=== PATIENT | female | born 1995 | race Caucasian/White ===

== ENCOUNTER 2018-10-24 11:21 | Emergency (ER) | payer SELFPAY ==
[~2018-10-24] VITALS: Ht 162.6 cm; Wt 73.7 kg
[2018-10-24 11:59] LABS: BASOPHILS # (AUTO) 0.07 x10^3/uL (0-0.1); BASOPHILS % (AUTO) 1 % (0-1); EOSINOPHILS % (AUTO) 2 % (1-7); LYMPHOCYTES # (AUTO) 1.61 x10^3/uL (1-3.4); LYMPHOCYTES % (AUTO) 25 % (22-44); MD NO; MEAN CORPUSCULAR HEMOGLOBIN 34.7 pg (27.0-34.8); MEAN CORPUSCULAR HGB CONC 33.5 g/dL (32.4-35.8); MEAN CORPUSCULAR VOLUME 103.4 fL (80-100); MEAN PLATELET VOLUME 8.1 fL (7.4-10.4); MONOCYTES # (AUTO) 0.58 x10^3/uL (0.2-0.8); MONOCYTES % (AUTO) 9 % (2-9); NEUTROPHILS # (AUTO) 4.13 x10^3/uL (1.8-6.8); NEUTROPHILS % (AUTO) 64 % (42-75); PLATELET COUNT 239 x10^3/uL (130-400); RED BLOOD COUNT 4.54 x10^6/uL (3.82-5.3); RED CELL DISTRIBUTION WIDTH 13.8 % (9.6-15.2)
[2018-10-24 12:06] LABS: ALANINE AMINOTRANSFERASE 141 U/L (12-78); ALBUMIN 4.1 g/dL (3.4-5.0); ANION GAP 9 mmol/L (5-15); CALCIUM 8.6 mg/dL (8.5-10.1); CHLORIDE 109 mmol/L (98-107); CREATININE 0.78 mg/dL (0.55-1.02)
[2018-10-24 12:11] LABS: ALKALINE PHOSPHATASE 83 U/L (45-117); BILIRUBIN,TOTAL 0.4 mg/dL (0.2-1.0); TOTAL PROTEIN 7.9 g/dL (6.4-8.2)
[2018-10-24] MEDS ORDERED: THIAMINE 100MG TABLET PO ONE (12:30)
[2018-10-24 12:39] LABS: AMPHETAMINE SCREEN, URINE Negative (Negative); BARBITURATE SCREEN, URINE Negative (Negative); BENZODIAZEPINE SCREEN, URINE Negative (Negative); CANNABINOID SCREEN, URINE Negative (Negative); COCAINE SCREEN, URINE Negative (Negative); METHADONE SCREEN, URINE Negative (Negative); OPIATE SCREEN, URINE Negative (Negative)
[2018-10-24] MEDS ORDERED: THIAMINE 100MG TABLET ONE (12:49)
--- NOTE | 2018-10-24 13:04 | NUR ---
NO ACUTE DISTRESS NOTED. NO IV TO DC. REVIEWED DC INSTRUCTIONS WITH PT, UNDERSTANDING VERBALIZED.
[2018-10-24 13:06] VITALS: BP 93/55
== END 2018-10-24 13:08 | disposition home or self-care (01) ==
LOC: ED 12:41
DX: F10.129 Alcohol abuse with intoxication, unspecified (principal)
CPT/HCPCS: 36415; 80053; 80307; 84703; 85025; 99283

== ENCOUNTER 2018-12-02 01:27 | Emergency (ER) | payer MEDICAID ==
[~2018-12-02] VITALS: Ht 162.6 cm; Wt 75.4 kg
--- NOTE | 2018-12-02 01:57 | NUR ---
PT HAS HAD FLU LIKE SYMPTOMS FOR PAST 2 WEEKS (COUGH/ ACHES). ALSO BEEN HAVING DIARRHEA FOR PAST 3 DAYS. STATES "HAVING SHARP PAIN TO BILATERAL LOWER EXTREMITIES AND FEELS BOTH FEET AND ANKLES ARE SWOLLEN.
[2018-12-02 02:12] LABS: BASOPHILS # (AUTO) 0.04 x10^3/uL (0-0.1); BASOPHILS % (AUTO) 1 % (0-1); EOSINOPHILS # (AUTO) 0.26 x10^3/uL (0-0.4); EOSINOPHILS % (AUTO) 3 % (1-7); LYMPHOCYTES # (AUTO) 2.38 x10^3/uL (1-3.4); LYMPHOCYTES % (AUTO) 29 % (22-44); MD NO; MEAN CORPUSCULAR HEMOGLOBIN 33.8 pg (27.0-34.8); MEAN CORPUSCULAR HGB CONC 34.3 g/dL (32.4-35.8); MEAN CORPUSCULAR VOLUME 98.6 fL (80-100); MEAN PLATELET VOLUME 7.8 fL (7.4-10.4); MONOCYTES # (AUTO) 0.62 x10^3/uL (0.2-0.8); MONOCYTES % (AUTO) 8 % (2-9); NEUTROPHILS # (AUTO) 4.81 x10^3/uL (1.8-6.8); NEUTROPHILS % (AUTO) 59 % (42-75); PLATELET COUNT 271 x10^3/uL (130-400); RED BLOOD COUNT 3.98 x10^6/uL (3.82-5.3); RED CELL DISTRIBUTION WIDTH 12.5 % (9.6-15.2)
[2018-12-02 02:23] LABS: ALANINE AMINOTRANSFERASE 27 U/L (12-78); ALBUMIN 3.1 g/dL (3.4-5.0); ANION GAP 8 mmol/L (5-15); CHLORIDE 108 mmol/L (98-107); CREATININE 0.89 mg/dL (0.55-1.02)
[2018-12-02 02:25] LABS: ALKALINE PHOSPHATASE 40 U/L (45-117); BILIRUBIN,TOTAL 0.3 mg/dL (0.2-1.0); TOTAL PROTEIN 5.5 g/dL (6.4-8.2)
--- NOTE | 2018-12-02 03:10 | NUR ---
PT RESTING. UPDATED ON POC. VSS.
[2018-12-02 03:30] VITALS: BP 118/74
== END 2018-12-02 03:32 | disposition home or self-care (01) ==
LOC: ED 02:16
DX: R05 Cough (principal); R09.89 Other specified symptoms and signs involving the circulatory and respiratory systems; R51 Headache; Z87.891 Personal history of nicotine dependence
CPT/HCPCS: 36415; 71046; 80053; 85025; 99284

== ENCOUNTER 2019-10-30 07:21 | Emergency (ER) | payer SELFPAY ==
[~2019-10-30] VITALS: Ht 162.6 cm; Wt 78.7 kg
--- NOTE | 2019-10-30 08:11 | NUR ---
TO ROOM FROM LOBBY. PT BEGAN VOMITTING INTO EMESIS BAG UPON ARRIVAL TO ROOM. FAMILY AT BEDSIDE. PT INSTRUCTED TO CHANGE INTO GOWN. AWAITING ORDERS BY ED MD.
[2019-10-30] MEDS ORDERED: MAALOX/HYOSCYAMINE/LIDOCAINE 45 ML BTL PO ONE (08:30)
[2019-10-30] MEDS ORDERED: FAMOTIDINE 20 MG/2 ML IV ONE (08:30)
[2019-10-30] MEDS ORDERED: SODIUM CHLORIDE FLUSH 10ML SYR IVF ONE (08:30)
[2019-10-30] MEDS ORDERED: ONDANSETRON 2MG/ML, 2ML IVPush ONE (08:30)
[2019-10-30] MEDS ORDERED: SODIUM CHLORIDE 0.9% 1,000ML IVBOLUS ONE (08:30)
[2019-10-30] MEDS ORDERED: ONDANSETRON 2MG/ML, 2ML ONE (08:39)
[2019-10-30] MEDS ORDERED: MAALOX/HYOSCYAMINE/LIDOCAINE 45 ML BTL ONE (08:39)
[2019-10-30] MEDS ORDERED: FAMOTIDINE 20 MG/2 ML ONE (08:40)
--- NOTE | 2019-10-30 08:56 | NUR ---
[facility] AT BEDSIDE. PT'S MOTHER AT BEDSIDE. CALL LIGHT W/IN REACH. PT INSTRUCED ON USE. VERBALIZED UNDERSTANDING. CONTINUOUS SPO2 MONITORING IN PLACE.
--- NOTE | 2019-10-30 09:00 | NUR ---
REPORT TO RHINA MCCULLOUGH
--- NOTE | 2019-10-30 09:01 | NUR ---
RECEIVED REPORT FROM DESTINY. PT LAYING ON GURNEY AWAKE & MOSTLY COMFORTABLE WITH US AT BS, RESPONDS APPROP TO STAFF, NO NEEDS AT THIS TIME, FAMILY AT BS, CALL LIGHT WITHIN REACH.
[2019-10-30 09:36] LABS: BASOPHILS # (AUTO) 0.05 x10^3/uL (0-0.1); BASOPHILS % (AUTO) 1 % (0-1); EOSINOPHILS # (AUTO) 0.02 x10^3/uL (0-0.4); EOSINOPHILS % (AUTO) 0 % (1-7); LYMPHOCYTES # (AUTO) 0.92 x10^3/uL (1-3.4); LYMPHOCYTES % (AUTO) 17 % (22-44); MD NO; MEAN CORPUSCULAR HEMOGLOBIN 36.7 pg (27.0-34.8); MEAN CORPUSCULAR HGB CONC 34.3 g/dL (32.4-35.8); MEAN CORPUSCULAR VOLUME 107.1 fL (80-100); MEAN PLATELET VOLUME 7.9 fL (7.4-10.4); MONOCYTES # (AUTO) 0.49 x10^3/uL (0.2-0.8); MONOCYTES % (AUTO) 9 % (2-9); NEUTROPHILS # (AUTO) 3.91 x10^3/uL (1.8-6.8); NEUTROPHILS % (AUTO) 73 % (42-75); PLATELET COUNT 202 x10^3/uL (130-400); RED BLOOD COUNT 4.24 x10^6/uL (3.82-5.3); RED CELL DISTRIBUTION WIDTH 14.2 % (9.6-15.2)
--- NOTE | 2019-10-30 09:58 | NUR ---
PT UPRIGHT ON GURNEY AWAKE & MORE COMFORTABLE, RESPONDS APPROP TO STAFF, COMFORT MEASURES PROVIDED, FAMILY AT BS, CALL LIGHT WITHIN REACH.
[2019-10-30 10:20] LABS: MICROSCOPIC INDICATED
[2019-10-30 10:24] LABS: CULTURE INDICATED? YES
[2019-10-30 10:25] LABS: ALANINE AMINOTRANSFERASE 84 U/L (12-78); ALBUMIN 3.5 g/dL (3.4-5.0); ANION GAP 10 mmol/L (5-15); CALCIUM 8.5 mg/dL (8.5-10.1); CHLORIDE 104 mmol/L (98-107); CREATININE 0.76 mg/dL (0.55-1.02)
[2019-10-30 10:30] LABS: ALKALINE PHOSPHATASE 164 U/L (45-117); BILIRUBIN,TOTAL 1.4 mg/dL (0.2-1.0); TOTAL PROTEIN 7.5 g/dL (6.4-8.2)
[2019-10-30 11:29] VITALS: BP 110/80
--- NOTE | 2019-10-30 11:29 | NUR ---
BREAK RN: ASSUMED CARE FOR D.C ONLY Patient/Caregiver given discharge instructions and they have confirmed that they understand the instructions. Patient ambulatory with steady gait.
== END 2019-10-30 11:31 | disposition home or self-care (01) ==
LOC: ED 10:11
DX: K70.10 Alcoholic hepatitis without ascites (principal); K85.20 Alcohol induced acute pancreatitis without necrosis or infection; K29.20 Alcoholic gastritis without bleeding; N30.00 Acute cystitis without hematuria; R94.5 Abnormal results of liver function studies; Y90.9 Presence of alcohol in blood, level not specified
CPT/HCPCS: 36415; 76700; 80053; 81001; 83690; 84703; 85025; 87077; 87086; 96374; 99284; J2405; J3490; J7030; 87186

== ENCOUNTER 2020-02-21 11:04 | Inpatient (IN) | payer MEDICAID, OTHER ==
[~2020-02-21] VITALS: Ht 165.1 cm; Wt 98.2 kg
[2020-02-21] MEDS ORDERED: PANTOPRAZOLE 80 MG in SODIUM CHLORIDE 0.9% 100 ML IV SCH (12:39)
[2020-02-21] MEDS ORDERED: PANTOPRAZOLE 80 MG in SODIUM CHLORIDE 0.9% 50 ML IVPB ONE (12:39)
[2020-02-21] MEDS ORDERED: MORPHINE SULFATE 4 MG/ML, 1ML ONE (12:59)
[2020-02-21] MEDS ORDERED: CEFTRIAXONE PMX 1GM/50ML 50 ML ONE (12:59)
[2020-02-21] MEDS ORDERED: CEFTRIAXONE PMX 1GM/50ML 50 ML IV ONE (13:00)
[2020-02-21] MEDS ORDERED: OCTREOTIDE 100MCG/ML, 1ML (0.1MG/ML) ONE (13:00)
[2020-02-21] MEDS ORDERED: SODIUM CHLORIDE FLUSH 10ML SYR IVF ONE (13:00)
[2020-02-21] MEDS ORDERED: OCTREOTIDE 100MCG/ML, 1ML (0.1MG/ML) IV ONE (13:00)
[2020-02-21] MEDS ORDERED: MORPHINE SULFATE 4 MG/ML, 1ML IVPush PRN (13:00)
[2020-02-21] MEDS ORDERED: PANTOPRAZOLE 40 MG IV ONE (13:00)
[2020-02-21] MEDS ORDERED: OCTREOTIDE 500 MCG in SODIUM CHLORIDE 0.9% 99 ML IV PRN (13:00)
[2020-02-21] MEDS ORDERED: LIDOCAINE 1%, 10ML ONE (13:25)
[2020-02-21 13:26] LABS: MEAN CORPUSCULAR HEMOGLOBIN 35.3 pg (27.0-34.8); MEAN CORPUSCULAR HGB CONC 34.1 g/dL (32.4-35.8); MEAN CORPUSCULAR VOLUME 103.7 fL (80-100); MEAN PLATELET VOLUME 8.6 fL (7.4-10.4); PLATELET COUNT 475 x10^3/uL (130-400); RED CELL DISTRIBUTION WIDTH 14.8 % (9.6-15.2)
--- NOTE | 2020-02-21 13:26 | NUR ---
US at bedside. ABX, protonix infusing. Bilateral PIV started. Pt has no complaints. Medicated for pain.
[2020-02-21 13:32] LABS: ALANINE AMINOTRANSFERASE 63 U/L (12-78); ALBUMIN 1.6 g/dL (3.4-5.0); ANION GAP 12 mmol/L (5-15); CALCIUM 8.1 mg/dL (8.5-10.1); CHLORIDE 98 mmol/L (98-107); CREATININE 3.14 mg/dL (0.55-1.02)
[2020-02-21 13:37] LABS: ALKALINE PHOSPHATASE 187 U/L (45-117); TOTAL PROTEIN 6.5 g/dL (6.4-8.2)
[2020-02-21 13:39] LABS: INTERNATIONAL NORMALIZED RATIO 2.32 (0.93-1.1); PROTHROMBIN TIME 24.8 Seconds (9.6-11.5)
[2020-02-21 13:54] LABS: BILIRUBIN,TOTAL 18.7 mg/dL (0.2-1.0)
[2020-02-21 13:55] LABS: ACETONE, SERUM Negative (Negative)
--- NOTE | 2020-02-21 13:56 | NUR ---
Critical lab: Tbil 18.7, reported by Lilly from lab. ERP aware.
[2020-02-21] MEDS ORDERED: ALBUMIN HUMAN 25% 100 ML IV ONE (14:00)
[2020-02-21 14:21] LABS: MD YES
[2020-02-21 14:24] LABS: BAND#(MANUAL) 2.48 x10^3/uL; BANDS%(MANUAL) 12 % (0-7); LYMPH#(MANUAL) 1.66 x10^3/uL (1-3.4); LYMPHS% (MANUAL) 8 % (22-44); METAMYELOCYTES# (MANUAL) 0.83 x10^3/uL (0-0); METAMYELOCYTES% (MANUAL) 4 % (0-1); MONOS#(MANUAL) 2.07 x10^3/uL (0.3-2.7); MONOS% (MANUAL) 10 % (2-9); SEG#(MANUAL) 13.66 x10^3/uL (1.8-6.8); SEGS% (MANUAL) 66 % (42-75)
--- NOTE | 2020-02-21 14:24 | NUR ---
Hospitalist at bedside, octreotide and Protonix gtt infusing. Family at bedside.
[2020-02-21 14:25] LABS: ANISOCYTOSIS 1+; POLYCHROMASIA 1+
[2020-02-21 14:26] LABS: <PLATELET ESTIMATE> ADEQUATE; <PLT MORPHOLOGY> NORMAL PLT MORPH
[2020-02-21] MEDS ORDERED: SODIUM CHLORIDE 0.9% 1,000 ML IV SCH (14:38)
[2020-02-21] MEDS ORDERED: hydrALAzine 20 MG/ML, 1ML IVPush PRN (15:00)
[2020-02-21] MEDS ORDERED: POTASSIUM CHLORIDE 40 MEQ in SODIUM CHLORIDE 0.9% 500 ML IV ONE (15:00)
[2020-02-21] MEDS: ALBUMIN HUMAN 25% 100 ML IV SCH ×2 (15:00→21:39)
[2020-02-21] MEDS ORDERED: PANTOPRAZOLE 80 MG in SODIUM CHLORIDE 0.9% 50 ML IV ONE (15:00)
[2020-02-21] MEDS ORDERED: ONDANSETRON 2MG/ML, 2ML IVPush PRN (15:00)
[2020-02-21] MEDS ORDERED: LABETALOL 5MG/ML, 20ML IVPush PRN (15:00)
[2020-02-21] MEDS ORDERED: OCTREOTIDE 1,250 MCG in SODIUM CHLORIDE 0.9% 247.5 ML IV PRN (15:00)
[2020-02-21 15:30] LABS: TROPONIN I < 0.015 ng/mL (0.000-0.045)
--- NOTE | 2020-02-21 16:42 | NUR ---
Report provided to payal Nielson ready for transport.
[2020-02-21] MEDS ORDERED: POTASSIUM CHLORIDE 20 MEQ TAB.ER.PRT PO SCH (17:00)
[2020-02-21 17:30] VITALS: BP 104/63
[2020-02-21 18:45] LABS: ALBUMIN 1.8 g/dL (3.4-5.0); ANION GAP 15 mmol/L (5-15); CALCIUM 7.9 mg/dL (8.5-10.1); CHLORIDE 97 mmol/L (98-107)
[2020-02-21 18:50] LABS: ALANINE AMINOTRANSFERASE 54 U/L (12-78); ALKALINE PHOSPHATASE 158 U/L (45-117); CREATININE 3.26 mg/dL (0.55-1.02); TOTAL PROTEIN 6.1 g/dL (6.4-8.2)
[2020-02-21 18:57] LABS: BILIRUBIN,TOTAL 17.2 mg/dL (0.2-1.0)
[2020-02-21 19:01] VITALS: BP_SYST 91; BP_SYST 94; BP_DIAS 50; BP_DIAS 55
[2020-02-21 20:36] LABS: TROPONIN I < 0.015 ng/mL (0.000-0.045)
[2020-02-21] MEDS: NICOTINE 7 MG/24 HR PATCH.TD24 TD SCH (20:46)
[2020-02-21] MEDS: NS + 40MEQ KCL 1,000 ML IV SCH ×2 (21:38→21:58)
[2020-02-21 22:11] LABS: MICROSCOPIC INDICATED
[2020-02-21 22:13] LABS: POTASSIUM,URINE RANDOM 61 mmol/L
[2020-02-21 22:28] LABS: CHLORIDE,URINE RANDOM < 10 mmol/L; SODIUM,URINE RANDOM < 5 mmol/L
[2020-02-22] MEDS: PANTOPRAZOLE 80 MG in SODIUM CHLORIDE 0.9% 100 ML IV SCH ×3 (00:28→18:18)
[2020-02-22] MEDS: OCTREOTIDE 500 MCG in SODIUM CHLORIDE 0.9% 99 ML IV PRN ×3 (00:28→17:30)
[2020-02-22 03:23] VITALS: BP 99/62
[2020-02-22] MEDS: ALBUMIN HUMAN 25% 100 ML IV SCH ×4 (03:31→20:38)
[2020-02-22] MEDS: OXYcodone IR 5MG TABLET PO PRN ×2 (03:42→19:49)
[2020-02-22 05:22] LABS: MEAN CORPUSCULAR HEMOGLOBIN 35.6 pg (27.0-34.8); MEAN CORPUSCULAR HGB CONC 34.4 g/dL (32.4-35.8); MEAN CORPUSCULAR VOLUME 103.4 fL (80-100); MEAN PLATELET VOLUME 8.3 fL (7.4-10.4); PLATELET COUNT 406 x10^3/uL (130-400); RED BLOOD COUNT 2.62 x10^6/uL (3.82-5.3); RED CELL DISTRIBUTION WIDTH 15.1 % (9.6-15.2)
[2020-02-22 05:37] LABS: ALBUMIN 2.1 g/dL (3.4-5.0); ANION GAP 15 mmol/L (5-15); CALCIUM 7.5 mg/dL (8.5-10.1); CHLORIDE 102 mmol/L (98-107)
[2020-02-22 05:41] LABS: ALANINE AMINOTRANSFERASE 47 U/L (12-78); ALKALINE PHOSPHATASE 143 U/L (45-117); CREATININE 3.36 mg/dL (0.55-1.02)
[2020-02-22 05:48] LABS: BILIRUBIN,TOTAL 16.7 mg/dL (0.2-1.0)
[2020-02-22 06:48] VITALS: BP 101/61
[2020-02-22 06:54] LABS: MD YES
[2020-02-22 06:56] LABS: BAND#(MANUAL) 2.84 x10^3/uL; BANDS%(MANUAL) 20 % (0-7); LYMPH#(MANUAL) 1.56 x10^3/uL (1-3.4); LYMPHS% (MANUAL) 11 % (22-44); METAMYELOCYTES# (MANUAL) 0.14 x10^3/uL (0-0); METAMYELOCYTES% (MANUAL) 1 % (0-1); MONOS#(MANUAL) 0.71 x10^3/uL (0.3-2.7); MONOS% (MANUAL) 5 % (2-9); SEG#(MANUAL) 8.95 x10^3/uL (1.8-6.8); SEGS% (MANUAL) 63 % (42-75)
[2020-02-22 06:57] LABS: ANISOCYTOSIS 1+; POLYCHROMASIA 1+
[2020-02-22 06:58] LABS: <PLATELET ESTIMATE> INCREASED; <PLT MORPHOLOGY> NORMAL PLT MORPH
[2020-02-22] MEDS ORDERED: prednisOLONE 15 MG/5 ML ORAL SOLN PO SCH (08:00)
[2020-02-22] MEDS ORDERED: SODIUM CHLORIDE 0.9% 1,000 ML IV SCH (08:30)
[2020-02-22] MEDS: POTASSIUM CHLORIDE 20 MEQ TAB.ER.PRT PO SCH (08:48)
[2020-02-22] MEDS: DOXYCYCLINE 100MG TABLET PO SCH ×2 (08:49→20:38)
[2020-02-22] MEDS ORDERED: SODIUM BICARBONATE 650 MG TABLET PO SCH (09:00)
[2020-02-22] MEDS: SODIUM BICARBONATE 8.4% 75 MEQ in SODIUM CHLORIDE 0.45% 1,000 ML IV SCH ×3 (10:10→22:50)
[2020-02-22 12:50] VITALS: BP 100/55
[2020-02-22] MEDS: CEFTRIAXONE PMX 2GM/50ML 50 ML IV SCH (13:05)
[2020-02-22] MEDS: morphine SULFATE 10 MG/ML, 1ML IVPush PRN ×3 (13:13→20:39)
[2020-02-22] MEDS: NICOTINE 7 MG/24 HR PATCH.TD24 TD SCH (15:00)
[2020-02-22 16:26] LABS: CHLORIDE,URINE RANDOM 14 mmol/L; POTASSIUM,URINE RANDOM 61 mmol/L; SODIUM,URINE RANDOM 8 mmol/L
[2020-02-22 19:41] VITALS: BP 102/67
[2020-02-23 01:15] VITALS: BP 108/64
[2020-02-23] MEDS: ALBUMIN HUMAN 25% 100 ML IV SCH ×4 (02:56→21:21)
[2020-02-23] MEDS: SODIUM BICARBONATE 8.4% 75 MEQ in SODIUM CHLORIDE 0.45% 1,000 ML IV SCH (03:45)
[2020-02-23] MEDS: PANTOPRAZOLE 80 MG in SODIUM CHLORIDE 0.9% 100 ML IV SCH ×2 (03:46→15:04)
[2020-02-23] MEDS: OCTREOTIDE 500 MCG in SODIUM CHLORIDE 0.9% 99 ML IV PRN ×3 (03:46→23:05)
[2020-02-23 04:40] LABS: MEAN CORPUSCULAR HEMOGLOBIN 35.5 pg (27.0-34.8); MEAN CORPUSCULAR HGB CONC 33.6 g/dL (32.4-35.8); MEAN CORPUSCULAR VOLUME 105.6 fL (80-100); PLATELET COUNT 412 x10^3/uL (130-400); RED BLOOD COUNT 2.33 x10^6/uL (3.82-5.3); RED CELL DISTRIBUTION WIDTH 15.5 % (9.6-15.2)
[2020-02-23 04:48] LABS: ANION GAP 13 mmol/L (5-15); CALCIUM 7.4 mg/dL (8.5-10.1); CHLORIDE 101 mmol/L (98-107)
[2020-02-23 04:51] LABS: ALANINE AMINOTRANSFERASE 38 U/L (12-78); ALKALINE PHOSPHATASE 122 U/L (45-117); CREATININE 3.41 mg/dL (0.55-1.02); TOTAL PROTEIN 6.2 g/dL (6.4-8.2)
[2020-02-23 04:56] LABS: BILIRUBIN,TOTAL 17.6 mg/dL (0.2-1.0)
[2020-02-23 05:44] LABS: MD YES
[2020-02-23 05:46] LABS: BAND#(MANUAL) 0.81 x10^3/uL; BANDS%(MANUAL) 5 % (0-7); EOS#(MANUAL) 0.48 x10^3/uL (0.0-0.4); EOS% (MANUAL) 3 % (1-7); LYMPH#(MANUAL) 1.61 x10^3/uL (1-3.4); LYMPHS% (MANUAL) 10 % (22-44); METAMYELOCYTES# (MANUAL) 0.48 x10^3/uL (0-0); METAMYELOCYTES% (MANUAL) 3 % (0-1); MONOS#(MANUAL) 1.13 x10^3/uL (0.3-2.7); MONOS% (MANUAL) 7 % (2-9); SEG#(MANUAL) 11.59 x10^3/uL (1.8-6.8); SEGS% (MANUAL) 72 % (42-75)
[2020-02-23 05:47] LABS: <PLATELET ESTIMATE> INCREASED; <PLT MORPHOLOGY> NORMAL PLT MORPH; ANISOCYTOSIS 1+; POLYCHROMASIA 1+
[2020-02-23 06:45] VITALS: BP 132/88
[2020-02-23] MEDS: morphine SULFATE 10 MG/ML, 1ML IVPush PRN ×4 (06:51→21:26)
[2020-02-23] MEDS: POTASSIUM CHLORIDE 20 MEQ TAB.ER.PRT PO SCH ×3 (08:09→21:21)
[2020-02-23] MEDS: DOXYCYCLINE 100MG TABLET PO SCH ×2 (08:09→21:21)
[2020-02-23 10:00] LABS: INTERNATIONAL NORMALIZED RATIO 2.25 (0.93-1.1); PROTHROMBIN TIME 24.1 Seconds (9.6-11.5)
[2020-02-23] MEDS ORDERED: ALBUMIN HUMAN 25% 100 ML IV SCH ×2 (12:00→16:00)
[2020-02-23] MEDS ORDERED: SODIUM BICARBONATE 8.4% 75 MEQ in SODIUM CHLORIDE 0.45% 1,000 ML IV SCH (12:00)
[2020-02-23] MEDS: CEFTRIAXONE PMX 2GM/50ML 50 ML IV SCH (13:05)
[2020-02-23 13:17] VITALS: BP 113/70
[2020-02-23] MEDS: NICOTINE 7 MG/24 HR PATCH.TD24 TD SCH (15:00)
[2020-02-23 16:20] VITALS: BP 161/84
[2020-02-23 19:25] VITALS: BP 124/78
[2020-02-23 19:59] VITALS: BP 116/72
[2020-02-24] MEDS: morphine SULFATE 10 MG/ML, 1ML IVPush PRN ×5 (00:23→19:35)
[2020-02-24 01:25] VITALS: BP 120/75
[2020-02-24] MEDS: PANTOPRAZOLE 80 MG in SODIUM CHLORIDE 0.9% 100 ML IV SCH (01:52)
[2020-02-24 05:38] LABS: MEAN CORPUSCULAR HEMOGLOBIN 36.1 pg (27.0-34.8); MEAN CORPUSCULAR HGB CONC 34.5 g/dL (32.4-35.8); MEAN CORPUSCULAR VOLUME 104.5 fL (80-100); MEAN PLATELET VOLUME 8.4 fL (7.4-10.4); PLATELET COUNT 419 x10^3/uL (130-400); RED CELL DISTRIBUTION WIDTH 15.7 % (9.6-15.2)
[2020-02-24 05:41] LABS: ALANINE AMINOTRANSFERASE 36 U/L (12-78); ALBUMIN 3.3 g/dL (3.4-5.0); ANION GAP 9 mmol/L (5-15); CALCIUM 7.6 mg/dL (8.5-10.1); CHLORIDE 101 mmol/L (98-107); CREATININE 3.26 mg/dL (0.55-1.02)
[2020-02-24 05:43] LABS: ALKALINE PHOSPHATASE 122 U/L (45-117); TOTAL PROTEIN 6.4 g/dL (6.4-8.2)
[2020-02-24 05:48] LABS: BILIRUBIN,TOTAL 19.5 mg/dL (0.2-1.0)
[2020-02-24 06:08] LABS: MD YES
[2020-02-24 06:10] LABS: <PLATELET ESTIMATE> INCREASED; <PLT MORPHOLOGY> NORMAL PLT MORPH; ANISOCYTOSIS 1+; BAND#(MANUAL) 0.63 x10^3/uL; BANDS%(MANUAL) 3 % (0-7); EOS#(MANUAL) 0.21 x10^3/uL (0.0-0.4); EOS% (MANUAL) 1 % (1-7); LYMPH#(MANUAL) 1.69 x10^3/uL (1-3.4); LYMPHS% (MANUAL) 8 % (22-44); METAMYELOCYTES# (MANUAL) 0.42 x10^3/uL (0-0); METAMYELOCYTES% (MANUAL) 2 % (0-1); MONOS#(MANUAL) 1.69 x10^3/uL (0.3-2.7); MONOS% (MANUAL) 8 % (2-9); MYELOCYTES# (MANUAL) 0.42 x10^3/uL (0-0); MYELOCYTES% (MANUAL) 2 % (0-0); POLYCHROMASIA 1+; SEG#(MANUAL) 16.04 x10^3/uL (1.8-6.8); SEGS% (MANUAL) 76 % (42-75); TARGET CELLS 1+
[2020-02-24 06:12] LABS: STOMATOCYTES 1+
[2020-02-24 06:52] VITALS: BP 113/73
[2020-02-24] MEDS: ALBUMIN HUMAN 25% 100 ML IV SCH (08:06)
[2020-02-24] MEDS: DOXYCYCLINE 100MG TABLET PO SCH ×2 (08:07→20:16)
[2020-02-24] MEDS: POTASSIUM CHLORIDE 20 MEQ TAB.ER.PRT PO SCH ×2 (08:07→20:16)
[2020-02-24] MEDS ORDERED: ALBUTEROL SULFATE 2.5 MG/3 ML ONE (09:18)
[2020-02-24] MEDS ORDERED: PROPOFOL 10 MG/ML, 50ML ONE (11:03)
[2020-02-24] MEDS ORDERED: LORazepam 2 MG/ML, 1ML IVPush PRN (11:30)
[2020-02-24] MEDS ORDERED: ONDANSETRON 2MG/ML, 2ML IVPush PRN (11:30)
[2020-02-24] MEDS ORDERED: OXYcodone 5 MG/5 ML ORAL.SOL UDC PO PRN (11:30)
[2020-02-24] MEDS ORDERED: FENTANYL PF 100 MCG/2ML IV PRN (11:30)
[2020-02-24] MEDS ORDERED: SODIUM BICARBONATE 8.4% 75 MEQ in SODIUM CHLORIDE 0.45% 1,000 ML IV SCH (11:30)
[2020-02-24 12:07] VITALS: BP 105/57
[2020-02-24 12:20] VITALS: BP 100/57
[2020-02-24] MEDS: CEFTRIAXONE PMX 2GM/50ML 50 ML IV SCH (12:21)
[2020-02-24 14:13] LABS: POTASSIUM,URINE RANDOM 54 mmol/L; SODIUM,URINE RANDOM 9 mmol/L
[2020-02-24 14:16] LABS: CHLORIDE,URINE RANDOM < 10 mmol/L
[2020-02-24 14:32] LABS: MICROSCOPIC INDICATED
[2020-02-24] MEDS: NICOTINE 7 MG/24 HR PATCH.TD24 TD SCH (14:35)
[2020-02-24] MEDS: ALBUTEROL SULFATE 2.5 MG/3 ML NPPB SCH ×2 (14:52→20:30)
[2020-02-24 19:30] VITALS: BP 125/71
[2020-02-25] MEDS: morphine SULFATE 10 MG/ML, 1ML IVPush PRN ×6 (00:25→21:33)
[2020-02-25 01:15] VITALS: BP 125/75
[2020-02-25 05:03] LABS: MEAN CORPUSCULAR HEMOGLOBIN 36.4 pg (27.0-34.8); MEAN CORPUSCULAR HGB CONC 34.7 g/dL (32.4-35.8); MEAN CORPUSCULAR VOLUME 104.8 fL (80-100); MEAN PLATELET VOLUME 8.4 fL (7.4-10.4); PLATELET COUNT 411 x10^3/uL (130-400); RED BLOOD COUNT 2.26 x10^6/uL (3.82-5.3); RED CELL DISTRIBUTION WIDTH 15.4 % (9.6-15.2)
[2020-02-25 05:12] LABS: ALANINE AMINOTRANSFERASE 38 U/L (12-78); ALBUMIN 3.2 g/dL (3.4-5.0); ANION GAP 11 mmol/L (5-15); CALCIUM 8.1 mg/dL (8.5-10.1); CHLORIDE 102 mmol/L (98-107); IRON LEVEL 30 mcg/dL (50-170)
[2020-02-25 05:15] LABS: % IRON SATURATION 31 % (20-55); ALKALINE PHOSPHATASE 121 U/L (45-117); TOTAL IRON BINDING CAPACITY 97 mcg/dL (250-450)
[2020-02-25 05:17] LABS: BILIRUBIN,TOTAL 23.1 mg/dL (0.2-1.0)
[2020-02-25 05:21] LABS: TOTAL PROTEIN 6.4 g/dL (6.4-8.2)
[2020-02-25 05:50] LABS: MD YES
[2020-02-25 05:52] LABS: ANISOCYTOSIS 1+; BAND#(MANUAL) 2.18 x10^3/uL; BANDS%(MANUAL) 8 % (0-7); LYMPH#(MANUAL) 2.18 x10^3/uL (1-3.4); LYMPHS% (MANUAL) 8 % (22-44); MONOS#(MANUAL) 1.37 x10^3/uL (0.3-2.7); MONOS% (MANUAL) 5 % (2-9); POLYCHROMASIA 1+; SEG#(MANUAL) 21.57 x10^3/uL (1.8-6.8); SEGS% (MANUAL) 79 % (42-75)
[2020-02-25 05:53] LABS: <PLATELET ESTIMATE> INCREASED; <PLT MORPHOLOGY> NORMAL PLT MORPH; STOMATOCYTES 1+; TARGET CELLS 1+
[2020-02-25 06:34] VITALS: BP 107/65
[2020-02-25] MEDS: ALBUTEROL SULFATE 2.5 MG/3 ML NPPB SCH ×4 (07:00→19:38)
[2020-02-25] MEDS: POTASSIUM CHLORIDE 20 MEQ TAB.ER.PRT PO SCH ×2 (08:28→09:00)
[2020-02-25] MEDS: DOXYCYCLINE 100MG TABLET PO SCH ×2 (08:29→21:39)
[2020-02-25] MEDS ORDERED: PANTOPRAZOLE 40 MG IV IVPush SCH (09:00)
[2020-02-25] MEDS: MIDODRINE 5 MG TABLET PO SCH ×3 (11:11→21:39)
[2020-02-25 12:07] VITALS: BP 114/67
[2020-02-25] MEDS: CEFTRIAXONE PMX 2GM/50ML 50 ML IV SCH (12:57)
[2020-02-25] MEDS: NICOTINE 7 MG/24 HR PATCH.TD24 TD SCH (15:00)
[2020-02-25] MEDS: OXYcodone IR 5MG TABLET PO PRN ×2 (16:50→22:33)
[2020-02-25 20:02] VITALS: BP 121/73
[2020-02-26 02:00] VITALS: BP 115/68
[2020-02-26] MEDS: morphine SULFATE 10 MG/ML, 1ML IVPush PRN ×2 (02:53→09:54)
[2020-02-26] MEDS: OXYcodone IR 5MG TABLET PO PRN ×3 (05:29→20:54)
[2020-02-26] MEDS: PANTOPRAZOLE 40MG TABLET PO SCH (05:30)
[2020-02-26 06:41] LABS: ALANINE AMINOTRANSFERASE 41 U/L (12-78); ANION GAP 13 mmol/L (5-15); CALCIUM 8.7 mg/dL (8.5-10.1); CHLORIDE 103 mmol/L (98-107); MEAN CORPUSCULAR HEMOGLOBIN 36.1 pg (27.0-34.8); MEAN CORPUSCULAR VOLUME 105.9 fL (80-100); MEAN PLATELET VOLUME 8.4 fL (7.4-10.4); PLATELET COUNT 433 x10^3/uL (130-400)
[2020-02-26] MEDS: ALBUTEROL SULFATE 2.5 MG/3 ML NPPB SCH ×4 (06:50→20:23)
[2020-02-26 06:52] LABS: ALKALINE PHOSPHATASE 132 U/L (45-117)
[2020-02-26 07:00] LABS: BILIRUBIN,TOTAL 24.2 mg/dL (0.2-1.0)
[2020-02-26 07:01] LABS: CREATININE 4.92 mg/dL (0.55-1.02); TOTAL PROTEIN 6.3 g/dL (6.4-8.2)
[2020-02-26 07:14] VITALS: BP 110/65
[2020-02-26 07:54] LABS: MD YES
[2020-02-26 07:56] LABS: BAND#(MANUAL) 5.96 x10^3/uL; BANDS%(MANUAL) 18 % (0-7); EOS#(MANUAL) 0.66 x10^3/uL (0.0-0.4); EOS% (MANUAL) 2 % (1-7); LYMPH#(MANUAL) 2.65 x10^3/uL (1-3.4); LYMPHS% (MANUAL) 8 % (22-44); METAMYELOCYTES# (MANUAL) 0.66 x10^3/uL (0-0); METAMYELOCYTES% (MANUAL) 2 % (0-1); MONOS#(MANUAL) 1.66 x10^3/uL (0.3-2.7); MONOS% (MANUAL) 5 % (2-9); MYELOCYTES# (MANUAL) 0.66 x10^3/uL (0-0); MYELOCYTES% (MANUAL) 2 % (0-0); SEG#(MANUAL) 20.85 x10^3/uL (1.8-6.8); SEGS% (MANUAL) 63 % (42-75)
[2020-02-26 07:58] LABS: ANISOCYTOSIS 1+
[2020-02-26 07:59] LABS: TARGET CELLS 1+; TOXIC GRAN 1+
[2020-02-26 08:00] LABS: <PLATELET ESTIMATE> INCREASED; <PLT MORPHOLOGY> NORMAL PLT MORPH
[2020-02-26] MEDS: DOXYCYCLINE 100MG TABLET PO SCH ×2 (08:56→20:52)
[2020-02-26] MEDS: MIDODRINE 5 MG TABLET PO SCH ×3 (08:56→20:53)
[2020-02-26] MEDS ORDERED: LACTULOSE 20 GM/30 ML UDC PO PRN (11:00)
[2020-02-26] MEDS: LACTULOSE 20 GM/30 ML UDC PO SCH ×2 (11:40→20:53)
[2020-02-26] MEDS: CEFTRIAXONE PMX 2GM/50ML 50 ML IV SCH (12:32)
[2020-02-26 12:50] VITALS: BP 113/65
[2020-02-26] MEDS: NICOTINE 7 MG/24 HR PATCH.TD24 TD SCH (15:01)
[2020-02-26 18:40] VITALS: BP 108/62
[2020-02-26] MEDS: SODIUM BICARBONATE 650 MG TABLET PO SCH (20:52)
[2020-02-27 01:45] VITALS: BP 113/66
[2020-02-27] MEDS: PANTOPRAZOLE 40MG TABLET PO SCH ×2 (05:51→22:09)
[2020-02-27 05:54] LABS: MEAN CORPUSCULAR HEMOGLOBIN 36.2 pg (27.0-34.8); MEAN CORPUSCULAR HGB CONC 34.2 g/dL (32.4-35.8); MEAN CORPUSCULAR VOLUME 105.9 fL (80-100); MEAN PLATELET VOLUME 8.2 fL (7.4-10.4); PLATELET COUNT 383 x10^3/uL (130-400); RED BLOOD COUNT 2.26 x10^6/uL (3.82-5.3); RED CELL DISTRIBUTION WIDTH 16.1 % (9.6-15.2)
[2020-02-27 06:04] LABS: ALBUMIN 2.8 g/dL (3.4-5.0); ANION GAP 11 mmol/L (5-15); CALCIUM 9.4 mg/dL (8.5-10.1); CHLORIDE 103 mmol/L (98-107)
[2020-02-27 06:12] LABS: MD YES
[2020-02-27 06:13] LABS: BAND#(MANUAL) 1.93 x10^3/uL; BANDS%(MANUAL) 6 % (0-7); METAMYELOCYTES# (MANUAL) 0.32 x10^3/uL (0-0); METAMYELOCYTES% (MANUAL) 1 % (0-1); NRBC % (MANUAL) 1 % (0-1)
[2020-02-27 06:15] LABS: LYMPHS% (MANUAL) 9 % (22-44); MONOS#(MANUAL) 0.97 x10^3/uL (0.3-2.7); MONOS% (MANUAL) 3 % (2-9); PMNS WITH VACUOLES 1+; SEG#(MANUAL) 26.08 x10^3/uL (1.8-6.8); SEGS% (MANUAL) 81 % (42-75)
[2020-02-27 06:16] LABS: ANISOCYTOSIS 1+; POLYCHROMASIA 1+; TARGET CELLS 1+
[2020-02-27 06:17] LABS: <PLATELET ESTIMATE> ADEQUATE; <PLT MORPHOLOGY> NORMAL PLT MORPH; ALANINE AMINOTRANSFERASE 43 U/L (12-78); ALKALINE PHOSPHATASE 136 U/L (45-117)
[2020-02-27 06:18] LABS: STOMATOCYTES 1+
[2020-02-27 06:22] LABS: BILIRUBIN,TOTAL 25.1 mg/dL (0.2-1.0); CREATININE 6.14 mg/dL (0.55-1.02)
[2020-02-27] MEDS: ALBUTEROL SULFATE 2.5 MG/3 ML NPPB SCH (06:30)
[2020-02-27] MEDS ORDERED: SODIUM POLYSTYRENE SULFONATE ORAL SUSP PO ONE (08:30)
[2020-02-27] MEDS: LACTULOSE 20 GM/30 ML UDC PO SCH ×2 (08:30→09:00)
[2020-02-27] MEDS: DOXYCYCLINE 100MG TABLET PO SCH (09:00)
[2020-02-27] MEDS: MIDODRINE 5 MG TABLET PO SCH (09:00)
[2020-02-27] MEDS: SODIUM BICARBONATE 650 MG TABLET PO SCH (09:00)
[2020-02-27 09:09] VITALS: BP 110/53
[2020-02-27] MEDS: morphine SULFATE 10 MG/ML, 1ML IVPush PRN ×2 (09:34→12:28)
[2020-02-27] MEDS ORDERED: SCOPOLAMINE 1MG PATCH TD SCH (11:00)
[2020-02-27] MEDS ORDERED: LORazepam 2 MG/ML, 1ML IV PRN (11:00)
[2020-02-27] MEDS: morphine SULFATE 100 MG in DEXTROSE 5% 90 ML IV PRN (14:21)
[2020-02-27] MEDS: LORazepam 2 MG/ML, 1ML IV PRN ×3 (14:33→22:29)
[2020-02-27] MEDS ORDERED: ALBUTEROL SULFATE 2.5 MG/3 ML NPPB SCH (21:00)
[2020-02-28] MEDS: morphine SULFATE 100 MG in DEXTROSE 5% 90 ML IV PRN ×2 (02:27→14:06)
[2020-02-28] MEDS: LORazepam 2 MG/ML, 1ML IV PRN ×7 (02:33→21:19)
[2020-02-28] MEDS: ATROPINE OPHTH SOLN 1%, 2ML PO PRN ×2 (17:11→21:09)
== END 2020-02-29 02:00 | disposition expired | DRG 871 ==
LOC: ED 11:53 → EDIP 13:42 → 4EST 17:02 → 3WST 02-28 14:40
PROVIDERS: ADMIT Internal Medicine; ATTEND Internal Medicine
PROC: 0DJ08ZZ Inspection of Upper Intestinal Tract, Via Natural or Artificial Opening Endoscopic (ICD-10-PCS; principal; 2020-02-24 12:30)
DX: A41.9 Sepsis, unspecified organism (principal); K72.00 Acute and subacute hepatic failure without coma; K76.7 Hepatorenal syndrome; J96.01 Acute respiratory failure with hypoxia; K22.11 Ulcer of esophagus with bleeding; N17.9 Acute kidney failure, unspecified; D68.9 Coagulation defect, unspecified; E87.2 Acidosis; E87.1 Hypo-osmolality and hyponatremia; N39.0 Urinary tract infection, site not specified; E87.6 Hypokalemia; K70.10 Alcoholic hepatitis without ascites; M41.9 Scoliosis, unspecified; D72.829 Elevated white blood cell count, unspecified; E80.6 Other disorders of bilirubin metabolism; R16.0 Hepatomegaly, not elsewhere classified; F43.10 Post-traumatic stress disorder, unspecified; F60.3 Borderline personality disorder; F41.9 Anxiety disorder, unspecified; F17.210 Nicotine dependence, cigarettes, uncomplicated; F10.10 Alcohol abuse, uncomplicated; Y90.0 Blood alcohol level of less than 20 mg/100 ml; D69.6 Thrombocytopenia, unspecified; E86.0 Dehydration; R04.0 Epistaxis; D64.9 Anemia, unspecified; E86.9 Volume depletion, unspecified; E87.70 Fluid overload, unspecified; K22.2 Esophageal obstruction; E66.9 Obesity, unspecified; Z51.5 Encounter for palliative care; Z80.8 Family history of malignant neoplasm of other organs or systems; Z68.36 Body mass index [BMI] 36.0-36.9, adult; Z79.899 Other long term (current) drug therapy
CPT/HCPCS: 36415; 49083; 71045; 74176; 76700; 76770; 80053; 80307; 81001; 82010; 82140; 82306; 82436; 82570; 82595; 82728; 83520; 83540; 83550; 83605; 83735; 83880; 84100; 84133; 84156; 84300; 84443; 84484; 84703; 85014; 85018; 85025; 85610; 86038; 86225; 86256; 86704; 86706; 86708; 86803; 86850; 86900; 87040; 87086; 87340; 87635; 93306; 94640; 99291; G0378; J0696; J2354; J2704; J3480; J7613; P9047; C9113; J2060; J2270; J7040